=== PATIENT | female | born 1945 | race Two or more races ===

== ENCOUNTER 2024-12-13 05:38 | Emergency (ER) | payer MEDICARE, MEDICAID, SELFPAY ==
[2024-12-13 06:22] VITALS: BP 126/81; PULSE 72; RESP 18; TEMP 36.6; O2SAT 97; BMI 31.8
--- NOTE | 2024-12-13 06:30 | EKG_ITS ---
[facility] Test Date: 2024-12-13 Pat Name: MAGALIS AVALOS Department: Room: - Gender: Female Shot Lighter: : 1945 Requested By: Niels Cifuentes Order Number: [id number] Reading MD: Niels Cifuentes Measurements Intervals [place] Rate: 75 P: 37 [place]: 173 QRS: 269 QRSD: 155 T: -9 QT: 420 QTc: 471 Interpretive Statements SINUS RHYTHM RIGHT AXIS DEVIATION [QRS AXIS > 100] RIGHT BUNDLE BRANCH BLOCK [120+ ms QRS DURATION, UPRIGHT V1, 40+ ms S IN I/aVL/V4/V5/V6] Compared to ECG 12/17/2023 17:18:56 Myocardial infarct finding no longer present /store/S0/[id number]/[id number].pdf
--- NOTE | 2024-12-13 06:30 | PD.EDRME ---
Rapid Medical Screening Exam RME Arrival date/time: 12/13/24 05:38 79-year-old female with a history of hyperlipidemia, type 2 diabetes, hypertension presents to the emergency room with a chief complaint of 8 out of 10 epigastric pain that is intermittent and has been coming and going for the last 4 days I have greeted and performed a focused initial assessment of this patient. A comprehensive ED assessment and evaluation of the patient, analysis of all test results, and completion of the medical decision making process will be conducted by additional ED providers. Chief Complaint: Abdominal Pain Time Seen by Provider: 12/13/24 06:10 Vital signs: Vital Signs Temperature 97.8 F 12/13/24 06:22 Pulse Rate 72 12/13/24 06:22 Respiratory Rate 18 12/13/24 06:22 Blood Pressure 126/81 12/13/24 06:22 Pulse Oximetry (%) 97 12/13/24 06:22 Oxygen Delivery Method Room Air 12/13/24 06:22
[2024-12-13] MEDS: MG HYD/AL HYD/SIME (Maalox Reg) SUSP 30 ML UDC PO (06:43)
[2024-12-13] MEDS: ONDANSETRON ODT 4 MG TABRAP PO (06:43)
--- NOTE | 2024-12-13 07:04 | PD.EDABDPN ---
ED Abdominal Pain RME/HPI General Chief Complaint: Abdominal Pain Stated complaint: UPPER ABD PAIN, DIARRHEA YESTERDAY Time seen by provider: 12/13/24 06:10 Arrival date/time: 12/13/24 05:38 RME / HPI RME / HPI narrative: 12/13/24 05:38 79-year-old female with a history of hyperlipidemia, type 2 diabetes, hypertension presents to the emergency room with a chief complaint of 8 out of 10 epigastric pain that is intermittent and has been coming and going for the last 4 days I have greeted and performed a focused initial assessment of this patient. A comprehensive ED assessment and evaluation of the patient, analysis of all test results, and completion of the medical decision making process will be conducted by additional ED providers. DR. HUMPHRIES MAIN ED EVALUATION 79 year old female with history of hypertension, diabetes, hyperlipidemia, GERD presents to the ED for evaluation of epigastric abdominal pain today. Described as a hot cold sensation that moves up her chest and feels attacked . Accompanied by diarrhea beginning yesterday. Reportedly has had similar pain intermittently for several years that is aggravated with eating certain foods. States she had been evaluated by GI who performed an EGD ~ 1 year ago in [place]. States she doesn't recall the results. However, was started on Pantoprazole 40mg QDAY. Denies any nausea, vomiting, or urinary symptoms. Denies chest pain, cough, or shortness of breath. Related Data Home Medications ?Medication ?Instructions ?Recorded ?Confirmed atorvastatin 40 mg tablet 40 mg PO QDAY 11/10/22 12/13/24 glimepiride 4 mg tablet 4 mg PO QDAY 11/10/22 12/13/24 losartan 25 mg tablet 25 mg PO QDAY 11/10/22 12/13/24 metformin 1,000 mg tablet,extended 1,000 mg PO QDAY 11/10/22 12/13/24 release 24hr (osmotic) pantoprazole 40 mg tablet,delayed 40 mg PO QDAY 11/10/22 12/13/24 release Previous Rx's ?Medication ?Instructions ?Recorded sucralfate 100 mg/mL oral 10 ml PO TID 7 days #420 mL 12/13/24 suspension Allergies Allergy/AdvReac Type Severity Reaction Status Date / Time No Known Allergies Allergy Verified 12/13/24 05:39 Review of Systems Review of Systems Systems Reviewed: All systems reviewed, normal except as documented Past Medical History Past Medical History CARDIAC: Positive Cardiac Disorders, Hypercholesterolemia and Hypertension; Negative Congestive Heart Failure RESPIRATORY: Negative Chronic Obstructive Pulmonary Disease (COPD) or Asthma GENITOURINARY: Negative Renal Disease ENDOCRINE: Positive Diabetes Mellitus Type 2; Negative Diabetes Mellitus Type 1 HEMATOLOGIC: Negative Sickle Cell Disease Surgical History SURGICAL: Positive Abdominal Surgery Social History SMOKING STATUS: Never smoker SUBSTANCE USE: does not use ED Exam Narrative Physical exam: GENERAL APPEARANCE: alert and oriented x 4, well-developed, well-nourished, no acute distress HEENT: Normocephalic, atraumatic; pupils equal, round, reactive to light; EOMI; mucous membranes pink, moist; oropharynx clear NECK: Supple LUNGS: CTABL; no wheezes, no rales, no rhonchi HEART: Regular rate, regular rhythm; normal S1, S2; no murmurs ABDOMEN: non distended; normal BS; soft, no tenderness, no guarding, no rebound; no masses, no organomegaly, no hernia BACK: no CVA tenderness EXTREMITIES: atraumatic; no edema NEUROLOGIC: awake; alert and oriented x4; cranial nerves II-XII grossly intact; no focal sensory or motor deficits PSYCHIATRIC: appropriate mood and affect SKIN: warm, dry, normal color; no rashes Course Quality Measures none Orders Category Date Time Status Bedside Blood Glucose NOW Care 12/13/24 07:27 Active EKG (ED ONLY) *Do not use* NOW Care 12/13/24 06:30 Completed IV [Insert IV] NOW Care 12/13/24 07:27 Active Miscellaneous Nursing Order NOW Care 12/13/24 07:34 Active EKG (ED Only) Stat Exams 12/13/24 06:30 Ordered BNP [B-Type Natriuretic Peptide] Stat Lab 12/13/24 07:29 Completed CBC Stat Lab 12/13/24 07:29 Completed CMP [Comprehensive Metabolic Panel] Stat Lab 12/13/24 07:29 Completed Lipase Stat Lab 12/13/24 07:29 Completed Troponin I Stat Lab 12/13/24 07:29 Completed UA [Urinalysis] Stat Lab 12/13/24 07:05 Completed Urine Culture Stat Lab 12/13/24 07:05 Received Ondansetron Odt [Zofran Odt] Med 12/13/24 06:29 Discontinued 4 mg PO X1 ONE mg Hyd/Al Hyd/Herve Susp [Maalox Susp] Med 12/13/24 06:29 Discontinued 30 ml PO X1 ONE Vital Signs Vital signs: Vital Signs Temperature 97.8 F 12/13/24 06:22 Pulse Rate 72 12/13/24 06:22 Respiratory Rate 18 12/13/24 06:22 Blood Pressure 126/81 12/13/24 06:22 Pulse Oximetry (%) 97 12/13/24 06:22 Oxygen Delivery Method Room Air 12/13/24 06:22 Pulse ox is 97% on room air which is adequate. Abdominal Pain MDM MDM Narrative MDM Narrative:: Yolanda Goncalves am scribing for and in the presence of Dr. Humphries. 79 year old female with history of hypertension, diabetes, hyperlipidemia, GERD presents to the ED for evaluation of epigastric abdominal pain today. Reportedly has had similar pain intermittently for several years that is aggravated with eating certain foods. States she had been evaluated by GI who performed an EGD ~ 1 year ago in [place]. States she doesn't recall the results and started on Pantoprazole 40mg QDAY. Denies any nausea, vomiting, or urinary symptoms. Denies chest pain, cough, or shortness of breath. Labs today show an elevated glucose 289, all other labs are unremarkable. Patient received Zofran and Maalox with improvement. Patient remains clinically stable throughout the emergency department visit. Patient is amenable to discharge. Strict return precautions were outlined. Patient was discharged in stable condition. Patient data External records reviewed:: [facility] previous records (I reviewed ED visit on 12/17/2023 ) Clinical information provided by:: patient Social determinants that could affect healthcare access:: none Patient has the following chronic illnesses:: hypertension, diabetes, hyperlipidemia, GERD How is presenting disease/condition affected by chronic disease/condition?: exacerbated by Evaluation data The following diagnostics were reviewed and interpreted by me:: lab results, radiology exam(s) and EKG tracing(s) (12/13/2024 @ 06:33 AM. Sinus rhythm, rate 75, Q-wave lead II III aVF V3 through V6, right bundle branch block, IVCD, T-wave inversion V1 through V5 and lead III ) Lab and/or radiology exams considered but not ordered:: None Interpretation Summary: As noted above Medications / Prescriptions Medications or Prescriptions considered but not ordered:: None Medication administrations:: Medication Administration History Discontinued Medications Al Hydrox/Mg Hydrox/Simethicone (Mg Hyd/Al Hyd/Herve (Maalox Reg) Susp 30 Ml Udc) 30 ml PO X1 ONE Stop: 12/13/24 06:30 Last Admin: 12/13/24 06:43 Dose: 30 ml Documented By: JH Ondansetron HCl (Ondansetron Odt 4 Mg Tabrap) 4 mg PO X1 ONE; Protocol Stop: 12/13/24 06:30 Last Admin: 12/13/24 06:43 Dose: 4 mg Documented By: JH See above Consultations Consultation(s) initiated? (list below): No Diagnosis Differential diagnosis abdominal pain: abdominal pain and other (gastritis) Most likely diagnosis given after review of the tests above:: Gastritis Admission Indicated Admission indicated?: not indicated Admission Request Was there a request for admission?: No Disposition Plan Disposition Plan: Discharge Discharge Attestation Discharge Attestation: The patient and all family members were given an opportunity to ask questions and understood the discharge instructions. Discharge instructions specifically effects, indications for sooner follow up or return to the emergency department, and the expected course of current diagnosis. Patient condition: Stable Discharge Plan Plan Patient Disposition: HOME (Self Care) Prescriptions/Referrals Prescriptions/Med Rec: New sucralfate 100 mg/mL suspension 10 ml PO TID 7 Days Qty: 420 0RF No Action atorvastatin 40 mg Tablet 40 mg PO QDAY pantoprazole 40 mg Tablet,Delayed Release (Dr/Ec) 40 mg PO QDAY glimepiride 4 mg Tablet 4 mg PO QDAY losartan 25 mg Tablet 25 mg PO QDAY metformin 1,000 mg Tablet Extended Release 24 Hr 1,000 mg PO QDAY Referrals: No Primary/Family,Physician [Primary Care Provider] - In 1 week Problem List Clinical Impression: Gastritis Patient/Caregiver Discharge Instructions Education Materials: ED Gastritis (Adult) Print Language: Uzbek Stand Alone Forms: [employer] Award Info., Patient Portal Info Letter
--- NOTE | 2024-12-13 07:06 | PC.NURSE ---
Addendum entered by Nesha Cabrera RN 12/13/24 07:19: Correction, patient has not taken the pantoprazole this am, last dose she took was yesterday. Original Note: Patient to er from [facility] and taken to room with c/o upper abdominal pain and diarrhea yesterday, patient denies blood in stool, skin is warm dry and pink. Patient was given pantoprazole by her pcp with she took early this am, patient denies n/v. Patient states she saw a GI specialists and had a EGD in [place], approx. 2 weeks ago. Currently patient rates upper abd. pain at a 1/10 with improvement of pain with medications given earlier in the ER. Dr. Jarrett at bedside, new orders recieved.
[2024-12-13 07:14] VITALS: BP 186/87; PULSE 64; RESP 16; TEMP 36.6; O2SAT 97
[2024-12-13 07:18] LABS: Collection Type, Urine Clean Catch
--- NOTE | 2024-12-13 07:39 | PC.NURSE ---
Patient took [place] 25mg pox1, gkunerourude 4mg pox1, Simvastatin 40mg po x 1,metformin 1000mg po x 1 now.
[2024-12-13 07:56] LABS: Bilirubin,Urine Negative (Negative); Blood,Urine Negative (Negative); Clarity,Urine Clear (Clear/Hazy); Color,Urine Lt-Yellow (Lt Yel-Yel); Glucose, Urine 4+ (Negative); Ketones,Urine Negative (Negative); Leukocyte Esterase,Urine Positive (Negative); Nitrite,Urine Negative (Negative); PH,Urine 6.0 (5.0-7.0); Protein,Urine Negative (Neg - Trace); RBC,Urine 2 /hpf (0-3); Specific Gravity,Urine 1.025 (1.001-1.035); Squamous Epithelial Cell,Urine 1 /hpf (0-5); Urobilinogen,Urine Negative mg/dL (0.0-1.0); WBC,Urine 10 /hpf (0-5)
[2024-12-13 08:06] LABS: Basophils # (Auto) 0.0 Thou/mm3 (0.0-0.2); Basophils % (Auto) 0 % (0-2.5); Eosinophils # (Auto) 0.1 Thou/mm3 (0.0-0.5); Eosinophils % (Auto) 1 % (0-10); Hematocrit 40.1 % (36.0-46.0); Hemoglobin 13.1 g/dL (12.0-16.0); Immature Granulocytes Auto 0.01 Thou/mm3 (0.00-0.00); Lymphocytes # (Auto) 1.3 Thou/mm3 (1.0-4.8); Lymphocytes % (Auto) 24 % (10-50); Mean Corpuscular HGB Conc 32.7 g/dl (31.0-37.0); Mean Corpuscular Hemoglobin 29.0 pg (25.0-35.0); Mean Corpuscular Volume 89 fL (80-100); Monocytes # (Auto) 0.4 Thou/mm3 (0.0-0.8); Monocytes % (Auto) 7 % (0-12); Neutrophils # (Auto) 3.7 Thou/mm3 (1.8-7.7); Neutrophils % (Auto) 67 % (37-80); Nucleated Red Blood Cell # 0.00 Thou/mm3 (0.00-0.00); Nucleated Red Blood Cell % 0 /100 WBC (0); Platelet Count 199 Thou/mm3 (140-440); RDW Standard Deviation 43.4 fL (36.4-46.3); Red Blood Count 4.51 Miln/mm3 (4.00-5.20); White Blood Count 5.4 Thou/mm3 (3.6-11.0)
[2024-12-13 08:29] LABS: Alanine Aminotransferase 10 U/L (10-49); Albumin, Serum 4.1 gm/dL (3.4-4.8); Albumin/Globulin Ratio 1.6 (1.2-2.2); Alkaline Phosphatase 100 U/L (46-116); Anion Gap 9 (7-16); Aspartate Amino Transferase 12 U/L (0-34); BUN/Creatinine Ratio 15 Ratio (12-20); Bilirubin,Total 0.4 mg/dL (0.3-1.2); Blood Urea Nitrogen 15 mg/dL (9-23); Calcium 8.9 mg/dL (8.3-10.6); Calcium (Corrected) 8.9 mg/dL (8.5-10.1); Carbon Dioxide 28.2 mMol/L (20.0-31.0); Chloride 105 mMol/L (98-107); Creatinine (Component) 1.0 mg/dL (0.6-1.3); Estimated Creatinine Clearance 42.0 mL/min (>60); Globulin 2.5 gm/dL (2.3-3.5); Glucose 289 mg/dL (74-106); Lipase 46 U/L (12-53); Osmolality,Calculated 294 (275-295); Potassium 3.9 mMol/L (3.4-5.1); Sodium 142 mMol/L (136-145); Total Protein 6.6 gm/dL (5.7-8.2); Troponin I 0.034 ng/mL (0.0-0.045); eGFR 57 See Note
[2024-12-13 08:30] LABS: B-Type Natriuretic Peptide < 20 pg/mL (0-100)
[2024-12-13 10:06] VITALS: BP 163/77; PULSE 68; RESP 16; TEMP 37.1; O2SAT 99
== END 2024-12-13 11:05 | disposition home or self-care (01) ==
PROVIDERS: Nurse Practitioner Family; Emergency Provider Emergency Medicine
DX: K29.70 Gastritis, unspecified, without bleeding (principal); I45.10 Unspecified right bundle-branch block; I10 Essential (primary) hypertension; E78.00 Pure hypercholesterolemia, unspecified
CPT/HCPCS: 36415; 80053; 81001; 83690; 83880; 84484; 85025; 87086; 93005; 99283; Q0162; A9270